=== PATIENT | female | born 1995 | race Two or more races ===

== ENCOUNTER 2024-01-19 19:49 | Emergency (ER) | payer OTHER ==
[~2024-01-19] VITALS: Ht 160 cm; Wt 70.3 kg
[2024-01-19] MEDS ORDERED: 0.9 % SODIUM CHLORIDE 1,000 ML IV STA (21:08)
[2024-01-19] MEDS ORDERED: ONDANSETRON HCL 2 MG/ML VIAL IM STA (21:09)
[2024-01-19] MEDS ORDERED: FAMOTIDINE/PF 20 MG/2 ML VIAL IV PUSH STA (21:09)
[2024-01-19 21:40] LABS: HEMATOCRIT 36.3 % (36.0-45.00); HEMOGLOBIN 12.5 g/dL (12.0-15.00); MEAN CELL VOLUME 88.5 fL (80.00-100.00); MEAN CORPUSCULAR HEMOGLOBIN 30.4 pg (27.00-32.0); MEAN CORPUSCULAR HGB CONC 34.3 g/dl (32.0-36.0); PLATELET COUNT 224 K/uL (150-450); RED BLOOD COUNT 4.11 M/uL (4.00-6.00); RED CELL DISTRIBUTION WIDTH 12.1 % (11.5-14.5)
[2024-01-19 21:56] LABS: CALCIUM 8.7 mg/dL (8.5-10.1); CREATININE SERUM 0.69 mg/dL (0.55-1.02); GFR 99.9; POTASSIUM 3.24 mEq/L (3.5-5.1)
[2024-01-19 22:06] LABS: URINE APPEARANCE Clear; URINE BILIRRUBIN Negative (NEGATIVE); URINE BLOOD Negative; URINE COLOR Yellow; URINE GLUCOSE Negative (NEGATIVE); URINE LEUKOCYTE Negative; URINE NITRATE Negative; URINE PROTEIN Trace (NEGATIVE)
[2024-01-19 22:09] LABS: URINE BACTERIA 3051.2 uL (0.0-1933); URINE EPITHELIAL CELLS 56.1 uL (0.0-38.8); URINE RBC 13.3 uL (0.0-20.8); URINE WBC 28.1 uL (0.0-23.2)
[2024-01-19] MEDS ORDERED: DICYCLOMINE HCL 20 MG TABLET PO ONE (23:00)
[2024-01-19] MEDS ORDERED: MEPERIDINE HCL/PF 25 MG/ML VIAL IV ONE (23:45)
== END 2024-01-20 05:08 | disposition left against medical advice (07) ==
LOC: ER 19:49
PROVIDERS: Emergency Medicine
DX: K52.89 Other specified noninfective gastroenteritis and colitis (principal)
CPT/HCPCS: 36415; 96365; 96366; 96372; 96374; 96375; 99282; J0500; J2175; J2405; J3490; J7030